=== PATIENT | male | born 1985 | race Hispanic/Latino ===

== ENCOUNTER 2016-11-24 19:34 | Emergency (ER) | payer MEDICAID ==
[~2016-11-24] VITALS: Ht 157.5 cm; Wt 68.0 kg
[~2016-11-24 19:34] MED LIST: DILANTIN100 MG PO; NKM; TEGRETOL200 MG PO
[2016-11-24 19:35] VITALS: BP 132/86
[2016-11-24] MEDS ORDERED: Tetanus/Diptheria/Pertussis Vaccine 0.5ml Syr IM ONE (20:15)
[2016-11-24] MEDS ORDERED: Lidocaine 1% MPF 10mg/ml 5ml IM ONE (20:45)
[2016-11-24] MEDS ORDERED: AUGMENTIN 875-1 EAC1 ORAL (21:10)
[2016-11-24] MEDS ORDERED: TYLENOL EXTRA500 MG ORAL (21:10)
[2016-11-24] MEDS ORDERED: BACITRACIN-P28.35 GM TP (21:10)
[2016-11-24] MEDS ORDERED: Bacitracin Oint UD TOPIC ONE (21:15)
--- NOTE | 2016-11-24 21:42 | Emergency Room Report ---
History of Present Illness General Chief Complaint: Animal Bite Source: EMS Present Illness HPI 31 YO male presents emergency department for dog bite to the right hand x one hour. Patient reports 7/10 in severity pain and open lesions to the right hand with bleeding. Patient denies taking medications. Patient does not know when his last tetanus vaccination was. Patient states he is not know if rabies on the animal is up-to-date it was an unknown dog. Denies numbness tingling or loss of sensation or gross motor movements of the extremities, incontinence of bowel or bladder. Denies CP, Palpitations, LOC, AMS, dizziness, Changes in Vision, Sensation, paresthesias, or a sudden severe headache. Allergies: Coded Allergies: No Known Allergies (Unverified , 09/18/12) Patient History Past Medical History: see triage record Past Surgical History: none Pertinent Family History: none Reviewed Nursing Documentation: PMH: Agreed, PSxH: Agreed Nursing Documentation-PM Past Medical History: No Stated History Hx Seizures: Yes Review of Systems All Other Systems: negative except mentioned in HPI Physical Exam Vital Signs Date Time Temp Pulse Resp B/P Pulse Ox O2 Delivery O2 Flow Rate FiO2 11/24/16 19:25 98.1 101 18 132/86 96 Room Air Sp02 EP Interpretation: reviewed, normal General Appearance: no apparent distress, alert, GCS 15, non-toxic Head: normocephalic, atraumatic Eyes: bilateral eye PERRL, bilateral eye normal inspection ENT: hearing grossly normal, normal pharynx, no angioedema, normal voice Neck: full range of motion, supple/symm/no masses Respiratory: lungs clear, normal breath sounds, speaking full sentences Cardiovascular #1: regular rate, rhythm, no edema, normal capillary refill Musculoskeletal: back normal, gait/station normal, normal range of motion, non- tender Neurologic: alert, oriented x3, responsive, motor strength/tone normal, sensory intact, speech normal Psychiatric: judgement/insight normal, memory normal, mood/affect normal Skin: normal color, no rash, warm/dry, well hydrated, laceration - multiple lacerations the most prominent is approx 1.4 cm in length, located on the palmar aspect of the distal right 5th digit -edges are jagged, and moderate disfiguration of the distal 5th digit, no nail involvement, no flexor tendon injury, there is a 0.5 cm puncture to the interdigital area between the 3rd and 4th digit, last is 0.4cm puncture to the lateral aspect of the right hand. Procedures Splinting Splinting : Consent: Verbal Location: right 5th digit Pre-Made Type: finger splint Pre-Proc Neuro Vasc Exam: normal Post-Proc Neuro Vasc Exam: normal Patient Tolerated: Well Complications: None Laceration/Wound Repair Laceration/Wound Repair : Consent: Verbal Wound Location: lower extremity - right distal 5th digit Wound's Depth, Shape: irregular Wound Length (cm): 1 Wound Explored: clean Irrigated w/ Saline (ccs): 1000 Anesthesia: 1% Lidocaine Volume Anesthetic (ccs): 5 Wound Repaired With: sutures Suture Size/Type: 5:0 Number of Sutures: 5 Layer Closure?: No Sterile Dressing Applied?: Yes Splint Applied?: Yes Type of Splint Applied: finger splint Sling Applied?: No Patient Tolerated: Well Complications: None Medical Decision Making PA Attestation Dr. [email or web address] is my supervising Physician whom patient management has been discussed with. Diagnostic Impression: Primary Impression: Bite by animal Additional Impression: Laceration ER Course Pt. presents to the ED c/o laceration to right hand secondary to dog bite. Ddx considered but are not limited to laceration, tendon injury, cellulitis, amputation Vital signs: are WNL, pt. is afebrile H&PE are most consistent with: multiple lacerations the most prominent is approx 1.4 cm in length, located on the palmar aspect of the distal right 5th digit -edges are jagged, and moderate disfiguration of the distal 5th digit, no nail involvement, no flexor tendon injury, there is a 0.5 cm puncture to the interdigital area between the 3rd and 4th digit, last is 0.4cm puncture to the lateral aspect of the right hand. ORDERS: none required at this time, the diagnosis is clinical ED INTERVENTIONS: -- due to the nature of disfigurement, I discussed placing several loose sutures to the distal 5th digit, the remaining wounds will be left open to close by secondary intent. -Augmentin PO -Tetanus vaccine was administered as pt. vaccination status was unknown. - The wound was copiously irrigated with normal saline, and explored for foreign body for which no FB was found. - pt. is anesthetized with 1%lidocaine - digital block method was used, and provided good anesthetic results. - The wound was approximated and closed using 5 interrupted 5.0 Prolene sutures. -Bacitracin and sterile dressing is applied. - Finger Splint applied by commercial maintenance technician. Pt. remains neurovascularly intact. Discussed with patient: That we make every effort to approximate the laceration as best as we can so that scarring will be as cosmetically pleasing as possible with our limited cosmetic skill set in the Emergency dept. Regardless of our best efforts there will be scarring after laceration repair. The extent of scarring is unknown at this time. DISCHARGE: At this time pt. is stable for d/c to home with oral Augmentin . Will provide printed patient care instructions, and any necessary prescriptions. Care plan and follow up instructions have been discussed with the patient prior to discharge. Last Vital Signs Date Time Temp Pulse Resp B/P Pulse Ox O2 Delivery O2 Flow Rate FiO2 11/24/16 19:35 98.1 18 132/86 96 Room Air 11/24/16 19:25 101 Disposition: HOME, SELF-CARE Condition: Stable Scripts Acetaminophen* (TYLENOL EXTRA STRENGTH*) 500 Mg Tablet 500 MG ORAL Q6H Y for Mild Pain/Temp > 100.5, #20 TAB 0 Refills Prov: Kristy Blanca 11/24/16 Bacitracin/Polymyxin B Sulfate (BACITRACIN-POLYMYXIN OINTMENT) 28.35 Gm Oint...g. 1 APPLIC TP BID, #28.3 GM Prov: Kristy Blanca 11/24/16 Amoxicillin/Potassium Clav 875-125* (AUGMENTIN 875-125 TABLET*) 1 Each Tablet 1 TAB ORAL TWICE A DAY for 10 Days, #20 TAB Prov: Kristy Blanca 11/24/16 Patient Instructions: Animal Bite Additional Instructions: Take medications as directed. TAKE ALL ANTIBIOTICS Follow up with PCP in 3-5 days Return sooner to ED if new symptoms occur, or current symptoms become worse. SUTURE REMOVAL in 10 days - Please note that this Emergency Department Report was dictated using [employer] hydraulic technology software, occasionally this can lead to erroneous entry secondary to interpretation by the dictation equipment. Kristy Blanca Nov 24, 2016 21:42
[2016-11-24 21:43] VITALS: BP 133/85
[2016-11-24] MEDS ORDERED: Augmentin 875mg Tab ORAL ONE (23:00)
== END 2016-11-24 21:43 | disposition home or self-care (01) ==
LOC: EDBD 19:34 → EMR 20:05
DX: S61.411A Laceration without foreign body of right hand, initial encounter (principal); S61.451A Open bite of right hand, initial encounter; Z23 Encounter for immunization; W54.0XXA Bitten by dog, initial encounter; Y92.009 Unspecified place in unspecified non-institutional (private) residence as the place of occurrence of the external cause
CPT/HCPCS: 12001; 29130; 90471; 90715; 96372; 99284; Z7502